=== PATIENT | female | born 1950 | race Caucasian/White ===

== ENCOUNTER 2022-01-10 05:39 | Day surgery (SDC) | payer OTHER ==
[~2022-01-10] VITALS: Ht 167.6 cm; Wt 117.9 kg
[2022-01-10] MEDS ORDERED: LOSA1TAB40 PO (05:57)
[2022-01-10] MEDS ORDERED: LIP40 PO (05:58)
[2022-01-10] MEDS ORDERED: ESCI20TA PO (05:58)
[2022-01-10] MEDS ORDERED: CLINDAMYCIN PHOS 600 MG/ D5W 50 ML PREMIX IV ONE (07:00)
[2022-01-10 07:33] LABS: BILIRUBIN,URINE NEGATIVE (NEGATIVE); BLOOD, URINE NEGATIVE (NEGATIVE); CLARITY/URINE CLEAR (CLEAR); COLOR,URINE YELLOW (YELLOW); GLUCOSE,URINE NEGATIVE (NEGATIVE); KETONES,URINE NEGATIVE (NEGATIVE); LEUKOCYTE ESTERASE ,URINE NEGATIVE (NEGATIVE); NITRITE, URINE NEGATIVE (NEGATIVE); PH,URINE 5.5 (5.0-8.0); PROTEIN URINE NEGATIVE (NEGATIVE); UROBILINOGEN,URINE 0.2 (0.2-1.0)
[2022-01-10] MEDS ORDERED: LR 1,000 ML IV.SOLN IV ONE (07:51)
[2022-01-10] MEDS ORDERED: MIDAZOLAM HCL 5 MG/5 ML VIAL IVP ONE (07:51)
[2022-01-10] MEDS ORDERED: METOPROLOL TARTRATE 5 MG/5 ML AMPUL IVP ONE (07:51)
[2022-01-10] MEDS ORDERED: ONDANSETRON HCL 4 MG/2 ML VIAL IVP ONE (07:51)
[2022-01-10] MEDS ORDERED: DESFLURANE 15 MIN GAS INH ONE (07:51)
[2022-01-10] MEDS ORDERED: NS IRRIG SOLN 1000 ML IR ONE (07:51)
[2022-01-10] MEDS ORDERED: fentaNYL CITRATE 250 MCG/5 ML AMP IV ONE (07:51)
[2022-01-10] MEDS ORDERED: ROCURONIUM BROMIDE 10 MG/ML (ZEMURON) IV ONE (07:51)
[2022-01-10] MEDS ORDERED: DEXAMETHASONE SOD PHOSPHATE 4 MG/ML VIAL IVP ONE (07:51)
[2022-01-10] MEDS ORDERED: SUGAMMADEX SODIUM 200 MG/2 ML VIAL IV ONE (07:51)
[2022-01-10] MEDS ORDERED: NS 1000 ML IV.SOLN IV ONE (07:51)
[2022-01-10] MEDS ORDERED: PROPOFOL 200MG/ 20ML VIAL (DIPRIVAN) IV ONE (07:51)
[2022-01-10] MEDS ORDERED: KETOROLAC TROMETHAMINE 30 MG VIAL IVP ONE (07:51)
[2022-01-10] MEDS ORDERED: CLINDAMYCIN PHOSPHATE 900 MG/6 ML VIAL IV ONE (07:51)
[2022-01-10] MEDS ORDERED: ACETAMINOPHEN I.V. 1000 MG 100 ML IV ONE (08:07)
[2022-01-10] MEDS ORDERED: METOCLOPRAMIDE HCL 10 MG/2 ML VIAL IVP PRN (08:30)
[2022-01-10] MEDS ORDERED: LABETALOL 100 MG/ 20ML VIAL IVP PRN (08:30)
[2022-01-10] MEDS ORDERED: MEPERIDINE HCL/PF 25 MG/ML DISP.SYRIN IVP PRN (08:30)
[2022-01-10] MEDS ORDERED: LR 1,000 ML IV SCH (08:30)
[2022-01-10] MEDS ORDERED: hydrALAZINE HCL 20 MG/ML VIAL IVP PRN (08:30)
[2022-01-10] MEDS ORDERED: HYDROmorphone 1 MG/ML INJ. CARTRIDGE IVP PRN ×2 (08:30)
[2022-01-10] MEDS ORDERED: METOCLOPRAMIDE HCL 10 MG/2 ML VIAL ONE (09:56)
[2022-01-10] MEDS ORDERED: HYDROmorphone 1 MG/ML INJ. CARTRIDGE ONE (10:59)
--- NOTE | 2022-01-10 14:10 | NUR ---
continuation of care. patient is awake and alert sitting up in bed. patient has complaints of nausea, paging dr for orders. patient educated on IS able to inspire 2000. patient has no other complaints, abdominal dressings are clean dry and intact. call light is with her educated to use for assistance.
[2022-01-10 15:00] VITALS: BP_SYST 129
[2022-01-10] MEDS ORDERED: ONDANSETRON HCL 4 MG/2 ML VIAL IVP PRN (15:00)
--- NOTE | 2022-01-10 15:18 | NUR ---
nausea medication given per order. received orders from md. patient is awake and alert no signs of any distress, no complaints of pain at this time. call light is with her, educated to use for assistance.
[2022-01-10 18:28] VITALS: BP_SYST 129
[2022-01-10] MEDS ORDERED: ALBUTEROL SULFATE 0.083% 2.5 MG/3 ML VIAL.NEB INH ONE (18:30)
--- NOTE | 2022-01-10 19:30 | NUR ---
OPENING NOTES: Patient received from AM shift. Patient is AA&Ox4 able to make needs known, denies any chest pain or SOB. Chest rise is even and unlabored on RA. Normal heart sounds are present on medsurg monitoring. Active BS x4 on auscultation, some pain noted with palpation abdominal dressing noted. Patient is able to communicate needs and is continent of B&B. Will resume care and monitor throughout the the shift.
--- NOTE | 2022-01-10 19:30 | NUR ---
rn closing note patient is awake and alert no signs of any distress, breathing is equal and non labored. patient educated on IS able to inspire 2000. no complaints at this time. requesting SCD's be turned off due to the noise they make. report was endorsed to night nurse. patients dressings are clean dry and intact.no other needs at this time.
[2022-01-10 20:00] VITALS: BP_SYST 121
[2022-01-10] MEDS ORDERED: ALBUTEROL SULFATE 0.083% 2.5 MG/3 ML VIAL.NEB INH SCH (22:00)
[2022-01-10] MEDS: ALBUTEROL SULFATE 0.083% 2.5 MG/3 ML VIAL.NEB INH SCH (23:00)
[2022-01-11 02:00] VITALS: BP_SYST 102
--- NOTE | 2022-01-11 06:25 | NUR ---
CLOSING NOTES: Patient is in bed resting no s/s of distress is noted at this time. Patient is able to verbalize needs and denies any pain or discomfort at this time. All current shift needs have been met at this time, and safety protocols are in place. Patient has call light within reach. Will differ further care to AM shift for continuity of care.
[2022-01-11] MEDS: ALBUTEROL SULFATE 0.083% 2.5 MG/3 ML VIAL.NEB INH SCH (07:00)
--- NOTE | 2022-01-11 07:30 | NUR ---
PATIENT IN BED, NO S/S OF DISTRESS, A/OX4, AMBULATORY, IV R HAND 20G INTACT PATENT, POST OP PATIENT UNDER OBSERVATION, NO PAIN AT THIS TIME, SAFETY MEASURES IN PLACE, INCISIONAL SITE CLEAN DRY AND INTACT, BED IN LOWEST LOCKED POSITION, CALL LIGHT WITHIN REACH, WILL CONTINUE TO MONITOR.
--- NOTE | 2022-01-11 07:52 | NUR ---
PER DR SHERRI ALMEIDA ORDER TO CONTINUE HOME MEDICATIONS. RECONCILED MEDICATIONS INCLUDING ATORVASTATIN, LEXAPRO, AND LOSARTAN WERE CONTINUED.
[2022-01-11 08:00] VITALS: BP_SYST 119
[2022-01-11] MEDS ORDERED: ATORVASTATIN 20 MG TABLET PO SCH (09:00)
[2022-01-11] MEDS ORDERED: ESCITALOPRAM OXALATE 10 MG TABLET PO SCH (09:00)
[2022-01-11] MEDS ORDERED: HYDROCHLOROTHIAZIDE 25 MG TABLET (HCTZ) PO SCH (09:00)
[2022-01-11] MEDS ORDERED: NON-FORMULARY MEDICATION (Losartan/Hctz* (Losartan-Hctz 100-25 Mg Tab*) 1 EACH) PO SCH (09:00)
[2022-01-11] MEDS ORDERED: CITALOPRAM HYDROBROMIDE 20 MG TABLET PO SCH (09:00)
[2022-01-11] MEDS ORDERED: LOSARTAN POTASSIUM 50 MG TABLET (COZAAR) PO SCH (09:00)
[2022-01-11] MEDS ORDERED: ALBUTEROL SULFATE 0.083% 2.5 MG/3 ML VIAL.NEB INH PRN (10:30)
[2022-01-11 12:53] VITALS: BP_SYST 109
[2022-01-11 13:50] VITALS: BP_SYST 109
--- NOTE | 2022-01-11 14:30 | NUR ---
PATIENT DISCHARGED STABLE AT THIS TIME, A/OX4, RIGHT HAND 20G IV REMOVED AND GAUZE APPLIED, DISCHARGE EDUCATION REVIEWED WITH PATIENT, DISCHARGE PACKET SIGNED, ORIGINAL IN CHART AND COPY WITH PATIENT, EDUCATED TO FOLLOW UP WITH DR MILVIA Cardoso 7 DAYS, WRIST BANDS REMOVED, ALL BELONGINGS WITH PATIENT AT DISCHARGE, TAKEN TO CAR IN WHEELCHAIR, PICKED UP BY .
[2022-01-11 16:50] VITALS: BP_SYST 111
== END 2022-01-11 14:30 | disposition home or self-care (01) ==
LOC: SMU 05:39 → SDS 05:39 → SMU 14:48 → SDS 01-11 14:30
PROVIDERS: ATTEND Colon & Rectal Surgery
DX: K80.10 Calculus of gallbladder with chronic cholecystitis without obstruction (principal)
CPT/HCPCS: 36415 ×2; 47563; 74300; 81003; 82962; 87426; 88304; 94660; C1727; C1758; J0131; J1100; J1170; J1885; J2250; J2405; J2704; J2765; J3010; J3490 ×4; J7030; J7120; J7613; Q9967; U0003; 76000

== ENCOUNTER 2024-03-11 08:00 | Outpatient (CLI) | payer OTHER ==
[~2024-03-11] VITALS: Ht 170.2 cm; Wt 100.2 kg
[~2024-03-11 08:00] MED LIST: ESCI20TA PO; LIP40 PO; LOSA1TAB40 PO
== END 2024-03-11 14:20 | disposition home or self-care (01) ==
LOC: SLB 08:00 → EDSTATUS 03-18 07:30 → SMU 03-18 07:50 → UNDOADMIN 03-18 07:50 → UNDODISIN 03-19 09:40
PROVIDERS: ATTEND Colon & Rectal Surgery
DX: Z01.812 Encounter for preprocedural laboratory examination (principal); K43.0 Incisional hernia with obstruction, without gangrene; K43.6 Other and unspecified ventral hernia with obstruction, without gangrene; I12.9 Hypertensive chronic kidney disease with stage 1 through stage 4 chronic kidney disease, or unspecified chronic kidney disease; E11.22 Type 2 diabetes mellitus with diabetic chronic kidney disease; N18.30 Chronic kidney disease, stage 3 unspecified; E11.36 Type 2 diabetes mellitus with diabetic cataract; M17.11 Unilateral primary osteoarthritis, right knee; M81.0 Age-related osteoporosis without current pathological fracture; G47.33 Obstructive sleep apnea (adult) (pediatric); E78.5 Hyperlipidemia, unspecified; Z88.0 Allergy status to penicillin; Z88.5 Allergy status to narcotic agent; Z88.8 Allergy status to other drugs, medicaments and biological substances; Z87.891 Personal history of nicotine dependence; Z53.8 Procedure and treatment not carried out for other reasons
CPT/HCPCS: 87081

== ENCOUNTER 2024-06-04 08:00 | Outpatient (CLI) | payer OTHER | END 2024-06-04 17:45 | disposition home or self-care (01) | LOC: SLB 08:00 → EDSTATUS 06-10 07:30 | PROVIDERS: ATTEND Colon & Rectal Surgery | DX: K43.0 Incisional hernia with obstruction, without gangrene (principal); K43.6 Other and unspecified ventral hernia with obstruction, without gangrene | CPT/HCPCS: 36415; 84132; 87081 ==